=== PATIENT | female | born 1960 ===

== ENCOUNTER → 2024-04-30 13:40 | Outpatient (CLI) | payer BC, SELFPAY ==
--- NOTE | 2024-04-30 13:42 | DI.RAD.S_ITS ---
PROCEDURE: XR WRIST LT MIN 3V INDICATIONS: FOOSH, dorsal carpals mid-dist rad tender+tingling TECHNIQUE: 4 views of the wrist were acquired. COMPARISON: None. FINDINGS: Bones: No acute displaced fracture. Mild scapholunate interval widening measuring 3-4 mm. Soft tissues: No suspicious calcifications. IMPRESSION: No acute displaced fracture. Mild widening of the scapholunate interval could represent ligamentous injury. If there is high concern for occult injury, consider repeat radiography or cross-sectional imaging. Dictated by: Marco Cottrell M.D. on 04/30/2024 at 14:38 Approved by: Marco Cottrell M.D. on 04/30/2024 at 14:39
--- NOTE | 2024-04-30 13:42 | DI.RAD.S_ITS ---
PROCEDURE: XR KNEE LT 3V INDICATIONS: anterior/lateral joint line tenderness/fall TECHNIQUE: 3 views of the knee were acquired. COMPARISON: None. FINDINGS: Bones: Mild degenerative changes. No acute displaced fracture or dislocation. Soft tissues: Possible small joint fluid. No suspicious calcifications. IMPRESSION: Mild degenerative changes. No acute radiographic abnormality. If there is high concern for further derangement, consider MRI evaluation. Dictated by: Marco Cottrell M.D. on 04/30/2024 at 14:39 Approved by: Marco Cottrell M.D. on 04/30/2024 at 14:40
== END ==
PROVIDERS: Referring Provider Student in an Organized Health Care Education/Training Program; Visit Provider Student in an Organized Health Care Education/Training Program
DX: S63.502A Unspecified sprain of left wrist, initial encounter (principal); W19.XXXA Unspecified fall, initial encounter; M25.562 Pain in left knee
CPT/HCPCS: 73110; 73562

== ENCOUNTER → 2024-05-12 10:50 | Outpatient (CLI) | payer BC, SELFPAY ==
--- NOTE | 2024-05-12 10:51 | DI.MRI.S_ITS ---
PROCEDURE: MR WRIST LT WO CON INDICATIONS: LEFT WRIST SPRAIN/PAIN/INJURY TECHNIQUE: Noncontrast coronal proton density fast spin echo and T2 fast spin echo with fat saturation; coronal 3-D gradient echo, axial T1 spin echo and T2 fast spin echo with fat saturation, sagittal T1 spin echo through the wrist. COMPARISON: Outside Film, CR, XR WRIST 1 OR 2 VIEWS LEFT, 05/07/2024, 9:40. FINDINGS: Image quality: Excellent. Bones and cartilage: Mild subchondral cystic changes in the lunate, nonspecific and may be reactive.aa mild degenerative changes of 1st carpometacarpal joint. No acute fracture. Carpal ligaments: There is tear of the volar and central component of the scapholunate ligament at the scaphoid insertion (series 4, image 9, and image 8). The dorsal component of the scapholunate ligament is intact. Mild widening of scapholunate interval. The lunotriquetral ligament is intact. Triangular fibrocartilage complex: Full thickness tear with thinning of the central disc. The full being the ulnar attachment is unremarkable. Tendons and soft tissues: The flexor tendons is unremarkable. The median nerve is unremarkable. There is mild tenosynovitis and tendinosis of the extensor carpi ulnaris, with mild ulnar subluxation within the ulnar groove. Subcutaneous edema of the volar radial wrist. IMPRESSION: 1. Full-thickness tear of the central disc of the triangular fibrocartilage. 2. Tear of the volar and central component of the scapholunate ligament. 3. Mild tenosynovitis and tendinosis of the extensor carpi ulnaris. Dictated by: Alessia Wcik M.D. on 05/13/2024 at 10:09 Approved by: Alessia Wick M.D. on 05/13/2024 at 10:22
== END ==
LOC: MRI 10:50
PROVIDERS: Referring Provider Orthopaedic Surgery; Visit Provider Orthopaedic Surgery
DX: S63.592A Other specified sprain of left wrist, initial encounter (principal); M65.832 Other synovitis and tenosynovitis, left forearm; W07.XXXA Fall from chair, initial encounter
CPT/HCPCS: 73221